=== PATIENT | male | born 1995 | race Caucasian/White ===

== ENCOUNTER 2017-02-05 08:37 | Day surgery (SDC) | payer OTHER ==
--- NOTE | 2017-02-04 21:10 | HPN ---
Date/Time of Note Date/Time of Note DATE: 02/04/17 TIME: 21:10 Interval H&P Admission Note Pt. seen H&P reviewed: No system changes PAULA CHOI MD Feb 04, 2017 21:10
[2017-02-05] VITALS (12 sets, daily range): BP systolic 117–173; BP diastolic 54–118; PULSE 95–138; RESP 16–38; Ht 182.9 cm; Wt 123.6 kg
[~2017-02-05] VITALS: Ht 182.9 cm; Wt 123.6 kg
[2017-02-05] MEDS ORDERED: ALBU18HF INHALATION (09:28)
--- NOTE | 2017-02-05 10:45 | OPR ---
Date/Time of Note Date/Time of Note DATE: 02/05/17 TIME: 10:44 Operative Report Procedure Date: Feb 05, 2017 Preoperative Diagnosis retained fb bb rt palm Postoperative Diagnosis same Operation Performed removal deep fb Surgeon: PAULA CHOI MD Anesthesia: MAC Anesthesiologist: ABHINAV DUKE MD Estimated Blood Loss: minimal PAULA CHOI MD Feb 05, 2017 10:45
[2017-02-05] MEDS ORDERED: MIDAZOLAM 1 MG/ML 2 ML INJ ONE (11:12)
[2017-02-05] MEDS ORDERED: LIDOCAINE 2% (SDV) 5 ML INJ ONE (11:12)
[2017-02-05] MEDS ORDERED: PROPOFOL 20 ML ONE (11:12)
[2017-02-05] MEDS ORDERED: FENTAnyl 50 MCG/ML VIAL ONE (11:26)
[2017-02-05] MEDS ORDERED: CEFAZOLIN 1 GM INJ ONE (11:27)
[2017-02-05] MEDS ORDERED: METOCLOPRAMIDE 10 MG INJ ONE (11:29)
[2017-02-05] MEDS ORDERED: DEXAMETHASONE 4 MG/ML 1 ML INJ ONE (11:29)
[2017-02-05] MEDS ORDERED: ONDANSETRON 4 MG INJ ONE (11:29)
[2017-02-05] MEDS ORDERED: HYDROmorphONE (0.2 MG/ML) 10ML SYG IV PRN (12:00)
[2017-02-05] MEDS ORDERED: MEPERIDINE 25 MG INJ IV PRN (12:00)
[2017-02-05] MEDS ORDERED: FENTAnyl 50 MCG/ML VIAL IV PRN (12:00)
[2017-02-05] MEDS ORDERED: DIPHENHYDRAMINE 50 MG INJ IV PRN (12:00)
[2017-02-05] MEDS ORDERED: OXYCODONE/ACETAMINOPHEN (5/325) TAB PO PRN ×2 (12:00)
[2017-02-05] MEDS ORDERED: PROCHLORPERAZINE 10 MG INJ IV PRN (12:00)
[2017-02-05] MEDS ORDERED: ONDANSETRON 4 MG INJ IV PRN (12:00)
[2017-02-05] MEDS ORDERED: ALBUTEROL 0.5% (NEB) 2.5 MG/0.5 ML AMP ONE (12:03)
[2017-02-05] MEDS ORDERED: ALBUTEROL 0.083% (NEB) 2.5 MG/3 ML AMP ONE (12:19)
--- NOTE | 2017-02-05 12:22 | OPR ---
DATE OF OPERATION: PREOPERATIVE DIAGNOSIS: Retained foreign body, BB, palm, right. POSTOPERATIVE DIAGNOSIS: Retained foreign body, palm, right. SURGEON: Paula Patel MD BIOMEDICAL SCIENTIST: Staff. HOUSING DEVELOPMENT SPECIALIST: Dr. Saucedo INFORMED CONSENT: We talked to the parents about the risks and hazards of surgery, talked about operative mortality, wound infection, nerve injury, good result, bad result, potential complications. Mother signed the note confirming the informed consent conversation. Patient is chronologically 20, functions at age 8 level, so we talked the parent his mother. SURGICAL PAUSE: I palpated deletion, marked the site, confirmed the operative procedure and plan with mother. I put a makah around an object with a marking pen, had the mother palpate it and we agreed that is where it was. DESCRIPTION OF PROCEDURE: The patient was taken to surgery, anesthetized as above, sterile prep and drape performed. A small incision was made obliquely over the palm over the foreign body. We bluntly dissected down to it, exposed it, popped it out, taking care to protect the neurovascular bundles in the region. The wound was closed with interrupted Vicryl Rapide suture. DISCHARGE MEDICATIONS 1. Hydrocodone and acetaminophen. 2. Keflex. FOLLOWUP: Will be our office in a week. Dictated By: PAULA SCHNEIDER/HEYDI Conf#: [id number] DID#: [id number] MTDD
[2017-02-05] MEDS ORDERED: ALBUTEROL 0.083% (NEB) 2.5 MG/3 ML AMP HHN SCH (12:30)
[2017-02-05] MEDS ORDERED: LABETALOL HCL 20MG INJ ONE (12:43)
[2017-02-05] MEDS ORDERED: LABETALOL HCL 20MG INJ IV ONE (13:00)
== END 2017-02-05 13:30 | disposition home or self-care (01) ==
LOC: SDS 08:37
PROVIDERS: ATTEND Orthopaedic Surgery Hand Surgery
DX: S60.551A Superficial foreign body of right hand, initial encounter (principal); X58.XXXA Exposure to other specified factors, initial encounter; Y92.89 Other specified places as the place of occurrence of the external cause
CPT/HCPCS: 10120; 88300; 94664; J0690; J1100; J2250; J2405; J2765; J3010; Z7512; Z7610